=== PATIENT | male | born 1990 | race Two or more races ===

== ENCOUNTER → 2021-05-08 | Day surgery (SDC) | payer OTHER | END | disposition home or self-care (01) | LOC: ADM 05-04 07:30 → CIR.AMB 06:15 | PROVIDERS: ATTEND Orthopaedic Surgery Hand Surgery | DX: S52.532A Colles' fracture of left radius, initial encounter for closed fracture (principal); Z20.822 Contact with and (suspected) exposure to COVID-19 | CPT/HCPCS: 25609; 25118; 25280; C1776 ==